=== PATIENT | female | born 1960 | race Caucasian/White ===

== ENCOUNTER → 2017-02-09 | Outpatient (CLI) | payer OTHER | LOC: FIMAGING 13:39 | PROVIDERS: ATTEND Family Medicine | DX: M54.32 Sciatica, left side (principal) ==

== ENCOUNTER → 2017-02-13 | Outpatient (CLI) | payer OTHER | LOC: FIMAGING 13:42 | PROVIDERS: ATTEND Orthopaedic Surgery Orthopaedic Surgery of the Spine | DX: M53.3 Sacrococcygeal disorders, not elsewhere classified (principal); M51.36 Other intervertebral disc degeneration, lumbar region; Z98.1 Arthrodesis status; K51.519 Left sided colitis with unspecified complications ==

== ENCOUNTER → 2017-02-22 | Outpatient (CLI) | payer OTHER | LOC: FIMAGING 14:07 | PROVIDERS: ATTEND Family Medicine | DX: Z12.31 Encounter for screening mammogram for malignant neoplasm of breast (principal); Z80.3 Family history of malignant neoplasm of breast | CPT/HCPCS: G0202 ==

== ENCOUNTER 2017-06-29 06:01 | Day surgery (SDC) | payer OTHER ==
[2017-06-29] MEDS ORDERED: LIDOCAINE 1% 2 ML INJ ID PRN (06:18)
[2017-06-29] MEDS ORDERED: LR 1,000 ML IV ONE (06:18)
[2017-06-29 06:48] VITALS: PULSE 92
[2017-06-29] MEDS ORDERED: PROPOFOL 200 MG/20 ML VIAL ONE ×2 (06:50→07:37)
[2017-06-29] MEDS ORDERED: fentaNYL 100 MCG/2 ML INJ ONE ×2 (06:50→07:37)
[2017-06-29] MEDS ORDERED: LIDOCAINE 2% 5 ML SDV ONE (06:50)
[2017-06-29] MEDS ORDERED: ONDANSETRON 4 MG/2 ML VIAL ONE (06:52)
[2017-06-29] MEDS ORDERED: MIDAZOLAM 2 MG/2 ML VIAL ONE (06:53)
[2017-06-29] MEDS ORDERED: DEXAMETHASONE 4 MG/ML VIAL ONE (06:53)
[2017-06-29] MEDS ORDERED: BUPIVACAINE 0.5% 30 ML SDV ONE (06:59)
[2017-06-29] MEDS: BUPIVACAINE 0.5% 30 ML SDV ONE ×2 (07:00→09:17)
--- NOTE | 2017-06-29 07:08 | PDANEPAE ---
ANE History of Present Illness left big toe fusion ANE Past Medical History - Cardiovascular History Hx Hypertension: Yes Hx Arrhythmias: No Hx Chest Pain: No Hx Coronary Artery / Peripheral Vascular Disease: No Hx CHF / Valvular Disease: No Hx Palpitations: No Cardiovascular History Comment: pcp monitors bp meds - Pulmonary History Hx COPD: No Hx Asthma/Reactive Airway Disease: No Hx Recent Upper Respiratory Infection: No Hx Oxygen in Use at Home: No Hx Sleep Apnea: No Sleep Apnea Screening Result - Last Documented: Negative - Neurologic History Hx Cerebrovascular Accident: No Hx Seizures: No Hx Dementia: No Neurologic History Comment: hx of back surgeries x3 - Endocrine History Hx Diabetes: Yes Obesity: no Endocrine History Comment: borderline dm. hypothyrodism - Renal History Hx Renal Disorders: No - Liver History Hx Hepatic Disorders: No - Neurological & Psychiatric Hx Hx Neurological and Psychiatric Disorders: Yes Neurological / Psychiatric History Comment: severe anxiety and depression - Cancer History Hx Cancer: No - Congenital Disorder History Hx Congenital Disorders: No - GI History GERD: no Hx Gastrointestinal Disorders: No Gastrointestinal History Comment: constipation with iron - Other Health History Other Health History: anemia - Chronic Pain History Chronic Pain: Yes (back and foot) - Surgical History Prior Surgeries: back surgery x3 with VBK [id number]. spinal injection wednesday with Dr. Padilla. breast augmentation x5. foot surgery x1. knee surgery (scopes) x2 with Anna ANE Review of Systems Review of systems is: negative Review of Systems: - Exercise capacity METS (RN): 4 METS ANE Patient History - Allergies Allergies/Adverse Reactions: No Known Allergies Allergy (Verified 06/28/17 15:48) - Home Medications Home medications: home medication list seen and reviewed Home Medications: Amlodipine Besylate/Benazepril [Amlodipine-Benazepril 5-10 mg] 06/13/12 [Last Taken Unknown] Bupropion HCl [Wellbutrin XL 300mg] 06/13/12 [Last Taken 06/29/17] DULoxetine [Cymbalta 60 MG (RX)] 06/13/12 [Last Taken 06/29/17] Diazepam [Valium 10 MG (RX)] 06/13/12 [Last Taken 06/29/17] Levothyroxine [Synthroid 25 mcg (RX)] 06/13/12 [Last Taken 06/29/17] Zolpidem Tartrate [Ambien 10 mg] 06/13/12 [Last Taken 06/28/17] IRON 06/28/17 [Last Taken 06/26/17] Metformin HCl 06/28/17 [Last Taken 06/28/17] Pravastatin Sodium 06/28/17 [Last Taken 06/29/17] - NPO status NPO Since - Liquids (Date): 06/28/17 NPO Since - Liquids (Time): 23:45 NPO Since - Solids (Date): 06/28/17 NPO Since - Solids (Time): 21:00 - Anes Hx Anes Hx: no prior problems - Smoking Hx Smoking Status: Never smoked - Family Anes Hx Family Hx Anesthesia Complications: none ANE Labs/Vital Signs - Labs Result Diagrams: 06/29/17 06:30 - Vital Signs Blood Pressure: 149/98 Heart Rate: 92 Respiratory Rate: 14 O2 Sat (%): 97 Height: 163.83 cm Weight: 58.967 kg ANE Physical Exam - Airway Neck exam: FROM Mallampati Score: Class 1 Mouth exam: normal dental/mouth exam - Pulmonary Pulmonary: no respiratory distress - Cardiovascular Cardiovascular: regular rate and rhythym - ASA Status ASA Status: III ANE Anesthesia Plan Anesthesia Plan: GA w LMA Regional Anesthesia: single shot NB, popliteal SNB
[2017-06-29 07:17] LABS: ANION GAP 16 mEq/L (8-16); CARBON DIOXIDE 23 mEq/l (22-31); CHLORIDE 94 mEq/L (97-110); CREATININE 0.5 mg/dL (0.6-1.0); GLOMERULAR FILTRATION RATE > 60; GLUCOSE 97 mg/dL (70-100); POTASSIUM 4.7 mEq/L (3.5-5.2); SODIUM 133 mEq/L (134-144)
[2017-06-29] MEDS ORDERED: ceFAZolin 2 GM/SWFI 2 GM/20 ML SYR IVP ONE (07:18)
--- NOTE | 2017-06-29 07:19 | PDHPUP ---
History & Physical Update H&P update statement: This history and physical update is based on an assessment of the patient which was completed after admission or registration (within 24 hours), but prior to the surgery/procedure.
[2017-06-29] MEDS ORDERED: ceFAZolin 1 GM VIAL ONE ×2 (07:51)
[2017-06-29] MEDS ORDERED: OXYCODONE/APAP 5/325 TAB PO PRN (08:37)
[2017-06-29] MEDS ORDERED: PROMETHAZINE HCL 25 MG/ML INJ IVP PRN (08:37)
[2017-06-29] MEDS ORDERED: fentaNYL 100 MCG/2 ML INJ IVP PRN (08:37)
[2017-06-29] MEDS ORDERED: HYDROmorphONE/DILAUDID 1 MG/ML INJ IVP PRN (08:37)
[2017-06-29] MEDS ORDERED: ACETAMINOPHEN 500 MG TAB PO PRN (08:37)
[2017-06-29] MEDS ORDERED: LR 500 ML IV PRN (08:37)
[2017-06-29] MEDS ORDERED: HYDROCODONE/APAP 5/325 TAB PO PRN (08:37)
[2017-06-29] MEDS ORDERED: ALBUTEROL 3 ML DEYVIAL IH PRN (08:37)
[2017-06-29] MEDS ORDERED: NALOXONE HCL 0.4 MG/ML INJ IVP PRN (08:37)
[2017-06-29] MEDS ORDERED: ONDANSETRON 4 MG/2 ML VIAL IVP PRN (08:37)
--- NOTE | 2017-06-29 09:14 | POSTOPPROG ---
Post Op Note Date of Operation: 06/29/17 Surgeon: Leandro Dodd Senior [facility] Physics Technician: Lavell Anesthesia: GET(General Endotracheal) Pre-op Diagnosis: L 1st mtp djd Post-op Diagnosis: same Indication: above Procedure: L 1st mtp fusion Findings: djd Inf/Abcess present in the surg proc area at time of surgery?: No EBL: Minimal
--- NOTE | 2017-06-29 09:25 | POSTANESTH ---
Post Anesthetic Evaluation Cardiovascular Status: Normal, Stable Respiratory Status: Requires Airway Assist Level of Consciousness/Mental Status: Can Participate in Eval Pain Control: Adequate, Prn Tx Ordered Nausea/Vomiting Control: Adequate, Prn Tx Ordered Complications Possibly Related to Anesthesia: None Noted
[2017-06-29 10:06] VITALS: RESP 20
[2017-06-29 11:25] VITALS: BP 124/85; O2SAT 95
[2017-06-29 11:26] VITALS: TEMP 97.9
--- NOTE | 2017-06-29 17:47 | GOP ---
[f rep st] OPERATIVE REPORT DATE OF OPERATION: 06/29/2017 SURGEON: Leandro Dodd MD ENGINEERING SPECIALIST: Lopez Monte SA PREOPERATIVE DIAGNOSIS: Left 1st metatarsophalangeal degenerative joint disease. POSTOPERATIVE DIAGNOSIS: Left 1st metatarsophalangeal degenerative joint disease. PROCEDURE PERFORMED: Left 1st metatarsophalangeal fusion. FINDINGS: SPECIMENS: None. ESTIMATED BLOOD LOSS: 5 mL. INDICATIONS: This is a 56-year-old female with end-stage 1st MTP DJD. I previously performed a chei lectomy on her. She failed this and went on to progress with further arthritis and pain. She was ab le to get off narcotic pain medicine preoperatively. I elected to proceed with surgery with her. We discussed risks of continued pain, the need to discontinue narcotics after the initial postoperative period, nerve injury, wound complications, malposition, malunion, nonunion, need for hardware remova l, and she elected to proceed. Informed consent and all questions answered. She was marked preopera tively. DESCRIPTION OF PROCEDURE: She was taken to the operative suite, sterilely prepped and draped in the usual fashion. Time-out was performed verifying site, side, location, and there was agreement with t he team. Tourniquet was inflated. I used old incisions to extend this to protect the EHL. I then r emoved some redundant scar tissue below this and opened the capsule. The joint was extremely arthrit ic. I debrided this with a rongeur and debrided scar tissue around the joint. I removed the medial bony prominence of which she was concerned and completely exposed the joint. I used the cup and cone reamers on the metatarsal and phalanx to prepare the joint and then drilled holes in this. I then p ositioned the toe and placed a guide pin across this and checked this fluoroscopically and checked cl inically with a flat plate. I felt this to be in good alignment. I drilled, placed headless liza alan screws to even compression, maintaining alignment. I placed the Arthrex 1st MTP plate over this . I filled the distal screws in the proximal compression screw and then additional proximal locking screws obtaining a solid construct. She had no motion of the 1st MTP joint clinically and radiograph ically position of fusion looked good. There was good compression. I thoroughly irrigated this and removed the medial and lateral bony prominences, closed with 0 Vicryl, 2-0 Vicryl, 3-0 Quill, and Trent mabond. She was taken to PACU in stable condition in a soft dressing. COMPLICATIONS: None. DRAINS: None. CONDITION: Stable. IMPLANTS: Arthrex headless compression 1st MTP plate and screws. /[id number]/MODL
== END 2017-06-29 11:28 | disposition home or self-care (01) ==
LOC: FSGY 06:01
PROVIDERS: ATTEND Orthopaedic Surgery
PROC: 0SGN04Z Fusion of Left Metatarsal-Phalangeal Joint with Internal Fixation Device, Open Approach (ICD-10-PCS; principal; 2017-06-29 07:15)
DX: M20.22 Hallux rigidus, left foot (principal); M79.672 Pain in left foot; I10 Essential (primary) hypertension; E03.9 Hypothyroidism, unspecified; F32.9 Major depressive disorder, single episode, unspecified; F41.9 Anxiety disorder, unspecified
CPT/HCPCS: C1713; J0690; J1100; J2250; J2405; J2704; J3010

== ENCOUNTER 2017-10-20 09:15 | Observation (INO) | payer OTHER ==
--- NOTE | 2017-10-08 09:06 | GHP ---
[f rep st] PREOP HISTORY AND PHYSICAL DATE OF SURGERY: She will be an a.m. admission for surgery on October 20, 2017. PROBLEM: Right knee advanced lateral compartment degenerative arthritis. HISTORY OF PRESENT ILLNESS: The patient is a 57-year-old woman admitted for a right total knee arthroplasty. She has a several year history of progressive pain and swelling in her right knee. She has tried viscosupplementation injections and cortisone injections without benefit. On December 04, 2016, I performed arthroscopic surgery on her knee. She had a significant lateral compartment degenerative arthritis with areas of exposed subchondral bone. She did not improve with the arthroscopic surgery. She is now having severe pain. Her activities are limited. Her quality of life has diminished. She has failed nonsurgical treatment, and she will undergo a right total knee arthroplasty. PAST MEDICAL HISTORY: She has chronic low back pain. She has had 2 recent back injections by Dr. Ning Padilla. She is taking tramadol 100 mg per day. No history of heart disease or stents, DVT, hepatitis, or sleep apnea. MEDICATIONS: Currently amlodipine/benazepril daily, bupropion extended release daily. ALLERGIES: Drug allergies: None. Metal allergy: None. Latex allergy: None. SOCIAL HISTORY: The patient is single. She does not smoke cigarettes or drink alcohol. She is currently not working. Her daughter lives with her, and her daughter is going to help her during the recovery phase. FAMILY HISTORY: Positive for cancer and heart disease. PHYSICAL EXAMINATION: GENERAL: She is a healthy-appearing woman. Height 5 feet 4 inches. Weight 135 pounds. BMI 23.2. EYES: Conjunctivae and sclerae are clear. Pupils are round and reactive. MOUTH: Good oral hygiene. No loose teeth. CHEST: Clear. HEART: Regular rhythm. No murmurs. EXTREMITIES : Pertinent findings limited to her right knee. She has a moderately large effusion. She has increased valgus alignment. Full extension and 120 degrees of flexion. She has mild pseudolaxity of her lateral collateral ligament. Her films show lateral compartment degenerative arthritis with slightly increased valgus alignment. IMPRESSION ON ADMISSION: 1. Right knee advanced lateral compartment degenerative arthritis. 2. Status post L5-S1 spine fusion. 3. Treatment for depression. 4. Chronic pain syndrome. 5. Status post left great toe metatarsophalangeal joint arthrodesis. PLAN: She will undergo a right total knee arthroplasty. The surgery has been described to her, including the risks, complications, expectations, and recovery time. I anticipate a difficult recovery because of her low pain threshold, and her previous history of chronic pain and narcotic use. I have stressed the importance of postoperative physical therapy. She understands that approximately 15% of people do not get a good result with a total knee replacement. All her questions have been answered, and she consents to surgery. /[id number]/MODL MTDD
[2017-11-02] MEDS ORDERED: ROPIVACAINE 0.2% 80 MG, EPINEPHrine 0.2 MG, KETOROLAC TROMETHAMINE 30 MG in SYRINGE 0 ML IU ONE (12:39)
[2017-11-03] MEDS ORDERED: NS IV ONE (06:00)
[2017-11-03] MEDS ORDERED: TRANEXAMIC ACID IV ONE (06:00)
[2017-11-03] MEDS ORDERED: BUPI/epINEPH/KETOROLAC IU ONE (06:00)
[2017-11-03] MEDS ORDERED: POVIDONE-IODINE 20 ML in SODIUM CL IRRIG SOLUTION 500 ML IRR ONE (06:00)
[2017-11-10] MEDS ORDERED: DEXAMETHASONE 4 MG/ML VIAL IVP ONE (09:42)
[2017-11-10] MEDS ORDERED: ACETAMINOPHEN 325 MG TAB PO ONE (09:42)
[2017-11-10] MEDS ORDERED: ONDANSETRON 4 MG/2 ML VIAL IVP ONE (09:42)
[2017-11-10] MEDS ORDERED: FAMOTIDINE 20 MG TAB PO ONE (09:42)
[2017-11-10] MEDS ORDERED: GABAPENTIN 300 MG CAP PO ONE (09:42)
[2017-11-10] MEDS ORDERED: ceFAZolin 2 GM/SWFI 2 GM/20 ML SYR IVP ONE (09:42)
[2017-11-10] MEDS ORDERED: MIDAZOLAM 2 MG/2 ML VIAL IVP ONE ×2 (09:55→12:28)
--- NOTE | 2017-11-10 09:55 | PDANEPAE ---
ANE Past Medical History - Cardiovascular History Hx Hypertension: Yes Hx Arrhythmias: No Hx Chest Pain: No Hx Coronary Artery / Peripheral Vascular Disease: No Hx CHF / Valvular Disease: No Hx Palpitations: No Cardiovascular History Comment: pcp monitors bp meds - Pulmonary History Hx COPD: No Hx Asthma/Reactive Airway Disease: No Hx Recent Upper Respiratory Infection: No Hx Oxygen in Use at Home: No Hx Sleep Apnea: No Sleep Apnea Screening Result - Last Documented: Negative - Neurologic History Hx Cerebrovascular Accident: No Hx Seizures: No Hx Dementia: No Neurologic History Comment: hx of back surgeries x3 -low back pain - Endocrine History Hx Diabetes: Yes Hypothyroid: Yes Hyperthyroid: No Obesity: no Endocrine History Comment: borderline dm -on Metformin. hypothyrodism - Renal History Hx Renal Disorders: No - Liver History Hx Hepatic Disorders: No - Neurological & Psychiatric Hx Hx Neurological and Psychiatric Disorders: Yes Neurological / Psychiatric History Comment: severe anxiety and depression - Cancer History Hx Cancer: No - Congenital Disorder History Hx Congenital Disorders: No - GI History GERD: no Hx Gastrointestinal Disorders: No Gastrointestinal History Comment: constipation with iron - Other Health History Other Health History: LOW SODIUM LEVELS BEING MONITORED BY PCP RECENTLY DECREASED DOSAGE OF CYMBALTA. OSTEOARTHRITIS. anemia - Chronic Pain History Chronic Pain: Yes (back/R knee) - Surgical History Prior Surgeries: L great toe sx -. back surgery x3 with VBK [id number]. NADIRA 06/27. breast augmentation x5. foot surgery x1. ANTONINO KNEE SCOPES. C section ANE Review of Systems Review of Systems: - Exercise capacity METS (RN): 4 METS ANE Patient History - Allergies Allergies/Adverse Reactions: No Known Allergies Allergy (Verified 10/05/17 17:08) - Home Medications Home Medications: Herbals/Supplements -Info Only 1 ea PO DAILY #0 06/28/17 [Last Taken 06/26/17] Pravastatin Sodium 20 mg PO DAILY #0 06/28/17 [Last Taken 11/08/17] metFORMIN SR [Glucophage XR 500 mg (*)] 1,000 mg PO BID #0 06/28/17 [Last Taken 11/08/17] Bupropion HCl [Wellbutrin Xl] 300 mg PO DAILY 10/04/17 [Last Taken 11/10/17 06: 45] DULoxetine [Cymbalta 30 MG (*)] 60 mg PO DAILY 10/04/17 [Last Taken 11/10/17 06: 45] Diazepam [Valium 10 MG (*)] 10 mg PO BID 10/04/17 [Last Taken 11/08/17] Levothyroxine [Synthroid 25 mcg (*)] 25 mcg PO DAILY06 10/04/17 [Last Taken 08/29 06:45] Valacyclovir HCl [Valtrex] 1,000 mg PO DAILY 10/04/17 [Last Taken 11/08/17] ZOLPIDEM TARTRATE [Ambien CR 12.5 mg] 12.5 mg PO HS 10/04/17 [Last Taken 22:00] amLODIPine BESYLATE/BENAZEPRIL [Lotrel 5/20 mg Cap (*)] 1 each PO DAILY [Last Taken 11/10/17 06:45] - NPO status NPO Since - Liquids (Date): 11/10/17 NPO Since - Liquids (Time): 05:30 NPO Since - Solids (Date): 11/09/17 NPO Since - Solids (Time): 22:00 - Anes Hx Anes Hx: no prior problems - Smoking Hx Smoking Status: Never smoked - Family Anes Hx Family Anes Hx: neg - N/A Family Hx Anesthesia Complications: none ANE Labs/Vital Signs - Vital Signs Blood Pressure: 133/89 Heart Rate: 83 Respiratory Rate: 20 O2 Sat (%): 97 Height: 163.83 cm Weight: 63.503 kg ANE Physical Exam - Airway Neck exam: FROM Mallampati Score: Class 2 Mouth exam: normal dental/mouth exam - Pulmonary Pulmonary: no respiratory distress, no rales or rhonchi, clear to auscultation - Cardiovascular Cardiovascular: regular rate and rhythym, no murmur, rub, or gallop - ASA Status ASA Status: II ANE Anesthesia Plan Anesthesia Plan: MAC, spinal Regional Anesthesia: continuous NB, adductor canal FNB Total IV Anesthesia: No
[2017-11-10] MEDS ORDERED: fentaNYL 100 MCG/2 ML INJ ONE (10:06)
[2017-11-10] MEDS ORDERED: PROPOFOL/EMULSION 500 MG/50 ML BOTTLE IV ONE ×2 (10:07→11:16)
[2017-11-10] MEDS ORDERED: MIDAZOLAM 2 MG/2 ML VIAL ONE (10:10)
[2017-11-10] MEDS ORDERED: TRANEXAMIC ACID 3,000 MG in NS (SYRINGE) 50 ML IRR ONE (11:00)
[2017-11-10] MEDS ORDERED: ONDANSETRON 4 MG/2 ML VIAL IVP PRN ×2 (11:01→12:12)
[2017-11-10] MEDS ORDERED: NALOXONE HCL 0.4 MG/ML INJ IVP PRN (11:01)
[2017-11-10] MEDS ORDERED: ACETAMINOPHEN 500 MG TAB PO PRN (11:01)
[2017-11-10] MEDS ORDERED: LR 500 ML IV PRN (11:01)
[2017-11-10] MEDS ORDERED: PHENYLEPHRINE HCL 100 MCG/ML SYR IVP PRN (11:01)
[2017-11-10] MEDS ORDERED: epHEDrine SULFATE 10 MG/ML SYR IVP PRN (11:01)
[2017-11-10] MEDS ORDERED: PROMETHAZINE HCL 25 MG/ML INJ IVP PRN ×2 (11:01→12:12)
[2017-11-10] MEDS ORDERED: oxyCODONE IR 5 MG TAB PO PRN (11:01)
[2017-11-10] MEDS ORDERED: HYDROCODONE/APAP 5/325 TAB PO PRN (11:01)
--- NOTE | 2017-11-10 11:46 | POSTOPPROG ---
Post Op Note Date of Operation: 11/10/17 Surgeon: Pradeep Castillo Wafer Batter Mixer: April Anesthesiologist: Dr. Mariusz Enrique Anesthesia: IV Sedation, Spinal Post-op Diagnosis: Right knee degenerative arthritis Procedure: Right total knee arthroplasty Inf/Abcess present in the surg proc area at time of surgery?: No EBL: 50-100 (Adductor canal block in PACU)
[2017-11-10] MEDS ORDERED: traMADol 50 MG TAB PO PRN (12:12)
[2017-11-10] MEDS ORDERED: ONDANSETRON DISINTEGRATING 4 MG TAB PO PRN (12:12)
[2017-11-10] MEDS ORDERED: BISACODYL 10 MG SUPP PR PRN (12:12)
[2017-11-10] MEDS ORDERED: POLYETHYLENE GLYCOL 3350 17 GM PKT PO PRN (12:12)
[2017-11-10] MEDS ORDERED: MAGNESIUM HYDROXIDE 30 ML UDCUP PO PRN (12:12)
[2017-11-10] MEDS ORDERED: NS 500 ML IV PRN (12:12)
[2017-11-10] MEDS ORDERED: LACTULOSE 20 GM/30 ML UDCUP PO PRN (12:12)
[2017-11-10] MEDS ORDERED: DIPHENOXYLATE/ATROPINE LOMOTIL 1 TAB PO PRN (12:12)
[2017-11-10] MEDS ORDERED: diphenhydrAMINE 25 MG CAP PO PRN (12:12)
[2017-11-10] MEDS ORDERED: PROMETHAZINE HCL 25 MG SUPPR PR PRN (12:12)
[2017-11-10] MEDS ORDERED: CYCLOBENZAPRINE 10 MG TAB PO PRN (12:12)
--- NOTE | 2017-11-10 12:26 | GOP ---
[f rep st] OPERATIVE REPORT DATE OF OPERATION: 11/10/2017 SURGEON: Pradeep Castillo MD PST MANAGER: Fernando Mathias, MOLDER FEEDER, and Demian Jones, PAC. ANESTHESIA: A combination of Marcaine spinal, IV sedation, and adductor canal block. ANESTHESIOLOGIST: Topher Enrique DO. PREOPERATIVE DIAGNOSIS: Right knee degenerative arthritis, primarily involving the lateral compartme nt. POSTOPERATIVE DIAGNOSIS: Right knee degenerative arthritis, primarily involving the lateral compartm ent. PROCEDURE PERFORMED: Right total knee arthroplasty, cemented, Saldana and Nephew Journey II, posterior stabilized. FINDINGS: DESCRIPTION OF PROCEDURE: The patient was given 2 g of IV Ancef preoperatively within 60 minutes of surgery. She also received 1000 mg of preoperative IV tranexamic acid. She was placed on the operat ing room table and given spinal anesthesia with Marcaine by Dr. Enrique. She was then placed sup ine and given IV sedation. A Corey catheter was not used. She wore a NED stocking and SCD on the no noperative leg. Her right lower extremity was prepped with ChloraPrep from the upper thigh tournique t to the tips of the toes. It was draped free using sterile sheets, stockinette, and Ioban plastic a dhesive drape. The lower leg was wrapped with compressive Coban. The leg was exsanguinated with kira vation and a 6-inch compressive wrap, and the pneumatic tourniquet was inflated to 250 mmHg. The World Health Organization time-out was performed to verify the correct patient identity and the c orrect surgical side and site. The [place] time-out was also performed. The DeMayo leg holding device was sterilely attached to the operating room table and used throughout the procedure to help position the knee. A straight midline incision was made centered on the patell a. Subcutaneous tissues were sharply divided, and hemostasis was obtained using electrocautery. A m edial subcutaneous flap was developed, and the capsule and synovium were opened in medial parapatella r fashion. Extensive degenerative changes were present in the patellofemoral joint and in the latera l compartment. The medial capsule and periosteum were lightly elevated off the rim of the medial tib ial plateau. I was careful not to over release her medial collateral ligament. Her patella was prepared first. The original thickness of the patella was measured. Peripheral oste ophytes removed. I cut a flat surface on the back of the patella. She was sized for a 32 mm round r esurfacing component. I removed enough bone from the patella such that the remaining bone plus the t hickness of the patellar component recreated the original thickness of the patella. The composite th ickness was 22 mm. The intramedullary alignment guide system was used to set up the distal femoral cut. The distal femu r was cut in 6 degrees of valgus. She did not have a preoperative flexion contracture. I did not ma ke a +2 mm cut on the distal femur. The sizing jig was used to determine proper femoral sizing. I s hifted the jig anteriorly 2 mm in order to accommodate a size 3 without notching the anterior cortex. The 5-in-1 cutting block was applied, and the anterior and posterior condylar cuts and chamfer cuts were made. The final jig was used to remove the central portion of the distal femur to accommodate the posterior stabilized femoral component. I was careful to determine proper rotation by referencin g off Whitesides line and other bony landmarks. Each cut was checked for accuracy before and after i t was made. Her femur was sized for a size 3 posterior stabilized component. Next, the tibia was prepared. The proximal tibial cut was made using the extramedullary alignment gu jared system. The cut was made in a few degrees of posterior slope. I was careful to achieve proper v arus/valgus alignment and proper rotation. The posterior compartment was cleared of meniscal remnant s. Osteophytes were removed from the back of her femoral condyles. I checked the flexion/extension gaps, and they were equal, balanced, and rectangular. Her tibia was sized for a size 2 component. W ith the trial components in place, I selected a 10 mm polyethylene posterior stabilized tibial insert . The knee came to full extension and flexed to 120 degrees. There was no overstuffing in flexion. The collateral ligaments were stable and balanced in 90 degrees of flexion and full extension. The trial patellar button was applied, and patellar tracking was checked. Tracking was excellent without any digital pressure. 40 mL of the joint anesthetic cocktail was injected into the posterior capsule, the quadriceps muscle and tendon areas, and the subcutaneous tissues along the skin edges. Surfaces were prepared for cementing. They were carefully cleaned with the pulsating lavage irrigati on and thoroughly dried. The CarboJet device was used to blow dry the cancellous surfaces. A double batch of high viscosity methylmethacrylate cement with 2 g of powdered vancomycin added was mixed. While it was still in a doughy state, all 3 components were cemented in place. Excess cement was rem don before it hardened. The 10 mm trial tibial insert was re-tried and was the proper thickness. The actual component was in serted and locked into place. The knee was thoroughly irrigated 1 final time with a dilute Betadine solution. The tourniquet was deflated. Total tourniquet time was 49 minutes. I then applied 50 cc of saline w ith 3 g of tranexamic acid into the knee joint. It was left in the knee joint for 2 or 3 minutes. O ne final irrigation with dilute Betadine solution was performed. The vastus medialis portion of the extensor mechanism was repaired with several interrupted figure-of -eight #2 FiberWire sutures. The capsule and synovium were closed first with multiple interrupted fi [id number] PDS sutures, followed by a running barbed Ethicon Stratafix PDO suture. Subcutaneous tissues were closed with a running 0 barbed Ethicon Stratafix Monoderm suture. The skin was closed with a running 3-0 barbed Ethicon Stratafix Monoderm subcuticular suture. The skin was sealed with h anupama-inch Steri-Strips. The wound was covered with a large Mepilex waterproof dressing. A long-leg T ED stocking and SCD were applied, followed by the cooling device. She wore a stocking and SCD on the opposite leg during the procedure. The Mediplex sacral dressing was applied. I used a size 3 cemented Saldana and Nephew Oxinium posterior stabilized femoral component, size 2 ceme nted tibial base plate, 10 mm posterior stabilized tibial insert, and a 32 mm cemented round all-poly ethylene resurfacing patellar component. The estimated blood loss following deflation of the tourniquet was about 100 mL. The sponge and needle counts were correct on 2 occasions. She was awakened from anesthesia, transferred to her [facility], and taken to PACU in satisfacto ry condition. There were no recognized intraoperative complications. In the PACU, for additional po stoperative pain control, Dr. Enrique performed an adductor canal block with an indwelling cathet er. Fernando Mtahias and Kalin Jones acted as surgical assistants. Their assistance was a medical necess ity for safe completion of the procedure. /[id number]/MODL
--- NOTE | 2017-11-10 12:29 | POSTANESTH ---
Post Anesthetic Evaluation Cardiovascular Status: Normal, Stable Respiratory Status: Normal, Stable Level of Consciousness/Mental Status: Can Participate in Eval Pain Control: Adequate, Prn Tx Ordered Nausea/Vomiting Control: Adequate, Prn Tx Ordered Complications Possibly Related to Anesthesia: None Noted
[2017-11-10] MEDS ORDERED: LR 1,000 ML IV SCH (12:30)
[2017-11-10] MEDS ORDERED: ceFAZolin 2 GM/DEXTROSE 100 ML IV SCH (14:00)
[2017-11-10] MEDS ORDERED: DIAZEPAM 10 MG TAB PO ONE (16:45)
[2017-11-10] MEDS ORDERED: DIAZEPAM 5 MG TAB PO ONE (16:45)
[2017-11-10] MEDS: oxyCODONE IR 5 MG TAB PO PRN ×3 (17:30→22:26)
[2017-11-10] MEDS: ACETAMINOPHEN 325 MG TAB PO SCH ×2 (17:30→23:45)
[2017-11-10] MEDS: KETOROLAC 15 MG/1 ML SDV IVP SCH ×2 (17:51→23:45)
[2017-11-10] MEDS: metFORMIN SR 500 MG TAB PO SCH (20:48)
[2017-11-10] MEDS: ZOLPIDEM TARTRATE 5 MG TAB PO PRN ×2 (20:48→22:36)
[2017-11-10] MEDS: DIAZEPAM 5 MG TAB PO SCH (20:48)
[2017-11-10] MEDS: FAMOTIDINE 20 MG TAB PO SCH (20:49)
[2017-11-10] MEDS: SENNOSIDES/DOCUSATE SODIUM TAB PO SCH (20:49)
[2017-11-10] MEDS ORDERED: ceFAZolin 2 GM/SWFI 2 GM/20 ML SYR IVP SCH (21:00)
[2017-11-10] MEDS: ASPIRIN 325 MG TAB PO SCH (21:41)
[2017-11-11] MEDS: oxyCODONE IR 5 MG TAB PO PRN ×3 (02:10→12:00)
[2017-11-11] MEDS ORDERED: LEVOTHYROXINE 25 MCG TAB PO SCH (06:00)
[2017-11-11] MEDS: KETOROLAC 15 MG/1 ML SDV IVP SCH (06:28)
[2017-11-11] MEDS: ACETAMINOPHEN 325 MG TAB PO SCH (06:28)
--- NOTE | 2017-11-11 07:39 | SOAPPROG ---
SOAP Progress Note Assessment/Plan: Assessment: Awake and alert. Moderate pain. She required a Corey catheterization yesterday, but is voiding spontaneously now. She has been walking to the bathroom. Postop H&H is good. Postop films look excellent. Her dressing is dry. Moderate swelling. Plan: Continue physical therapy today. Standing leg alignment film today. Discharged later today. 11/11/17 07:38 Objective: Vital Signs Temp Pulse Resp BP Pulse Ox 36.6 C 80 16 134/76 H 94 11/11/17 04:00 11/11/17 04:00 11/11/17 04:00 11/11/17 04:00 11/11/17 04:00 Laboratory Results 11/11/17 04:22 11/10/17 11/11/17 11/12/17 05:59 05:59 05:59 Intake Total 2750 Output Total 3450 Balance -700 ICD10 Worksheet Patient Problems: Problems Problem Status Onset Osteoarthritis of right knee Acute
--- NOTE | 2017-11-11 07:41 | PDIAF ---
- Diagnosis Diagnosis: right knee OA Code Status: Full Code - Medication Management Discharge Medications: Medications to Continue on Transfer Herbals/Supplements -Info Only 1 ea PO DAILY #0 06/28/17 [Last Taken 06/26/17] Pravastatin Sodium 20 mg PO DAILY #0 06/28/17 [Last Taken 11/08/17] metFORMIN SR [Glucophage XR 500 mg (*)] 1,000 mg PO BID #0 06/28/17 [Last Taken 11/08/17] Bupropion HCl [Wellbutrin Xl] 300 mg PO DAILY 10/04/17 [Last Taken 11/10/17 06: 45] DULoxetine [Cymbalta 30 MG (*)] 60 mg PO DAILY 10/04/17 [Last Taken 11/10/17 06: 45] Diazepam [Valium 10 MG (*)] 10 mg PO BID 10/04/17 [Last Taken 11/08/17] Levothyroxine [Synthroid 25 mcg (*)] 25 mcg PO DAILY06 10/04/17 [Last Taken 08/29 06:45] Valacyclovir HCl [Valtrex] 1,000 mg PO DAILY 10/04/17 [Last Taken 11/08/17] ZOLPIDEM TARTRATE [Ambien CR 12.5 mg] 12.5 mg PO HS 10/04/17 [Last Taken 22:00] amLODIPine BESYLATE/BENAZEPRIL [Lotrel 5/20 mg Cap (*)] 1 each PO DAILY [Last Taken 11/10/17 06:45] Acetaminophen [Tylenol 325mg (*)] 650 mg PO Q6HRS tab 11/11/17 [Last Taken Unknown] Aspirin [Aspirin 325 mg (*)] 325 mg PO DAILY tab 11/11/17 [Last Taken Unknown] Ondansetron Odt [Zofran Odt 4 mg (*)] 4 mg PO Q4HRS PRN tab 11/11/17 [Last Taken Unknown] Sennosides/Docusate Sodium [Senokot-S] 1 - 2 tab PO BID tab 11/11/17 [Last Taken Unknown] celeCOXIB [Celebrex (*)] 200 mg PO DAILY cap 11/11/17 [Last Taken Unknown] oxyCODONE IR [Oxycodone Ir (*)] 5 - 10 mg PO Q3HRS PRN tab 11/11/17 [Last Taken Unknown] traMADol [Ultram 50 mg (*)] 50 mg PO Q6HRS PRN tab 11/11/17 [Last Taken Unknown ] Discharge Medications: Refer to the Discharge Home Medication list for PRN reason. PICC Care - Routine: N/A - Orders Services needed: Home Care, Physical Therapy Home Care Face to Face: I certify that this patient was under my care and that I had the required [id number] encounter meeting the encounter requirements on the discharge day. My findings support the fact that the patient is homebound as defined in Home Care Face to Face Continued: CMS Chapter 7 Medicare Benefits Manual 30.1.1 , The condition of the patient is such that there exists a normal inability to leave home and consequently, leaving home would require a considerable and taxing effort. Diet Recommendation: no restrictions on diet Diet Texture: Regular Texture Diet Corey: Not applicable Peter Stockings Discontinue Date: 1 week Wound Care Instructions: keep clean and dry. You may shower. Activity/Weight Bearing Restrictions: as tolerated. Equipment: Zero knee while in bed as tolerated. - Follow Up Care Current Providers and Referrals: DINAH STARR [Primary Care Provider] - Pradeep Castillo MD [Medical Doctor] - 11/15/17
--- NOTE | 2017-11-11 08:06 | GDS ---
[f rep st] DISCHARGE SUMMARY ADMISSION DIAGNOSIS: Right knee arthritis. DISCHARGE DIAGNOSIS: Right knee arthritis. OPERATION PERFORMED: 11/29/2017, right total knee arthroplasty. POSTOPERATIVE COMPLICATIONS: None. CONDITION ON DISCHARGE: Improved. DESCRIPTION OF HOSPITAL COURSE: The patient was admitted to the hospital on the morning of surgery. Under a combination of Marcaine spinal, IV sedation, and adductor canal block, she underwent a right total knee arthroplasty. Postoperatively, she required Corey catheterization 1 time, but was able t o void spontaneously after that. She was treated with multimodal DVT prophylaxis, including aspirin. On the first postoperative day, her hemoglobin and hematocrit were 10.9 and 31.8. She was seen by Physical Therapy and made decent progress with ambulation and knee range of motion. By the time of d ischarge, she was afebrile and was independent in walking with a walker. DISPOSITION: The patient is discharged to her home. She will have home physical therapy. Continue aspirin 325 mg p.o. daily for 21 days. Continue Celebrex 200 mg daily for 21 days. She has prescrip tions for tramadol and oxycodone for pain control. I will see her back in the office on 11/15/2017. If there are any problems, she is to call me at the office. /[id number]/MODL
[2017-11-11] MEDS: SENNOSIDES/DOCUSATE SODIUM TAB PO SCH (08:37)
[2017-11-11] MEDS: metFORMIN SR 500 MG TAB PO SCH (08:38)
[2017-11-11] MEDS: DIAZEPAM 5 MG TAB PO SCH (08:39)
[2017-11-11] MEDS: ASPIRIN 325 MG TAB PO SCH (08:40)
[2017-11-11] MEDS: FAMOTIDINE 20 MG TAB PO SCH (08:41)
[2017-11-11] MEDS ORDERED: AMLODIPINE BESYLATE 5/BENAZEPRIL 20MG 1 EACH CAP PO SCH (09:00)
[2017-11-11] MEDS ORDERED: PRAVASTATIN SODIUM 20 MG TAB PO SCH (09:00)
[2017-11-11] MEDS ORDERED: valACYclovir 500 MG TAB PO SCH (09:00)
[2017-11-11] MEDS ORDERED: DULoxetine 30 MG CAP PO SCH (09:00)
[2017-11-11] MEDS ORDERED: buPROPion XL 150 MG TAB PO SCH (09:00)
[2017-11-11 10:10] VITALS: BP 108/79
--- NOTE | 2017-11-11 10:30 | SOAPPROG ---
SOAP Progress Note Assessment/Plan: Assessment: POD #1 s/p TKA performed under SAB and IV sedation. An adductor canal block and catheter placement were performed in the PACU for extended POPC. Patient doing well. Plan: D/C to home today. Prior to d/c will rebolus adductor canal catheter and then withdraw. 11/11/17 10:26 Subjective: Pt. admits pain increasing since 0200. Tolerable and controllable. Denies N/ V, pruritus, urinary retention. Admits to mild back pain. Objective: Vital Signs Temp Pulse Resp BP Pulse Ox 36.6 C 87 18 108/79 92 11/11/17 04:00 11/11/17 10:09 11/11/17 10:09 11/11/17 10:09 11/11/17 10:09 Laboratory Results 11/11/17 04:22 11/10/17 11/11/17 11/12/17 05:59 05:59 05:59 Intake Total 2750 Output Total 3450 Balance -700 - Time Spent With Patient Time Spent With Patient: 15 minutes - Pending Discharge Pending Discharge Within 24 Hours: Yes Pending Discharge Date: 11/12/17 Pending Discharge Time: 11:00 Physical Exam - Physical Exam General Appearance: WD/WN, alert, no apparent distress Neuro/Psych: normal mood/affect, oriented x 3 ICD10 Worksheet Patient Problems: Problems Problem Status Onset Osteoarthritis of right knee Acute
--- NOTE | 2017-11-11 10:38 | ASMTCMCOM ---
CM Note CM Note Notes: Pt had total knee, PT rec [facility]. Pt chooses [facility] PT, orders sent in [employer]. Pt medically stable for d/c. Date Signed: 11/11/2017 10:37 AM Electronically Signed By:NATALI Blank
--- NOTE | 2017-11-11 14:31 | ASDISCHSUM ---
Discharge Information Plan Status:Home with Home Health Medically Cleared to Leave: Discharge Date:11/11/2017 12:34 PM CM D/C Disposition:Home Health Service ADT D/C Disposition:Home Health Service Projected Discharge Date:11/11/2017 11:00 AM Transportation at D/C: Discharge Delay Reason: Follow-Up Date:11/11/2017 11:00 AM Discharge Slot: Final Diagnosis: Placement Information Referral Type:*Home Health Care Services Referral ID:[id number] Provider Name:[facility] [place] Address 1:[address] [address] Address 2: City:[place] Selection Factors: State:[place] Patient Contact Information Contact Name:WILLIAM Relationship:Daughter Address: Work Phone: City:[place] Alternate Phone: [facility] Code:[place] Email: Financial Information Financial Class:HMO and PPO Plans Primary Plan Desc:H[employer] [employer] Primary Plan Number:[id number] Secondary Plan Desc: Secondary Plan Number: Assessment Information [facility] CM Progress Note CM Note CM Note Notes: Pt had total knee, PT rec [facility]. Pt chooses [facility], orders sent in [employer]. Pt medically stable for d/c. Date Signed: 11/11/2017 10:37 AM Electronically Signed By:NATALI Blank Intervention Information
== END 2017-11-11 12:34 | disposition home health service (06) ==
LOC: F3N 11-10 07:48
PROVIDERS: ADMIT Orthopaedic Surgery; ATTEND Orthopaedic Surgery
PROC: 0SRC0J9 Replacement of Right Knee Joint with Synthetic Substitute, Cemented, Open Approach (ICD-10-PCS; principal; 2017-11-10 09:30)
DX: M17.11 Unilateral primary osteoarthritis, right knee (principal); M54.5 Low back pain; E03.9 Hypothyroidism, unspecified; G89.4 Chronic pain syndrome; F32.9 Major depressive disorder, single episode, unspecified; Z98.1 Arthrodesis status
CPT/HCPCS: 27447; 73560; 77073; 97161; G0378; J0171; J1885; J2250; J2370; J2405; J2704; J3010

== ENCOUNTER 2017-11-27 08:03 | Emergency (ER) | payer OTHER ==
[2017-11-27] MEDS ORDERED: HYDROmorphONE/DILAUDID 2 MG/ML INJ IVP ONE (08:23)
--- NOTE | 2017-11-27 08:27 | EDPHY ---
H & P Stated Complaint: R knee pain/swelling at site knee replacemt 11/17 Time Seen by Provider: 11/27/17 08:20 HPI/ROS: CHIEF COMPLAINT: Right knee pain HISTORY OF PRESENT ILLNESS: The patient is a 57-year-old female who had her right knee replaced 10 days ago. She states that she ran out of her oxycodone 5 days ago has had continued pain since that time. She has been moving it less and states that it is now swelling more. She called Dr. Dodd who is on for Dr. Castillo and sent her in for ultrasound to rule out DVT. Patient is primarily concerned about pain control. No fever. No drainage. No erythema. REVIEW OF SYSTEMS: Constitutional: denies: chills, fever, recent illness, recent injury EENTM: denies: blurred vision, double vision, nose congestion Respiratory: denies: cough, shortness of breath Cardiac: denies: chest pain, irregular heart rate, lightheadedness, palpitations Gastrointestinal/Abdominal: denies: abdominal pain, diarrhea, nausea, vomiting, blood streaked stools Genitourinary: denies: dysuria, frequency, hematuria, pain Musculoskeletal: See HPI Skin: denies: lesions, rash, jaundice, bruising Neurological: denies: headache, numbness, paresthesia, tingling, dizziness, weakness Hematologic/Lymphatic: denies: blood clots, easy bleeding, easy bruising Immunologic/allergic: denies: HIV/AIDS, transplant EXAM: GENERAL: Well-appearing, well-nourished and in no acute distress. HEAD: Atraumatic, normocephalic. EYES: Pupils equal round and reactive to light, extraocular movements intact, sclera anicteric, conjunctiva are normal. ENT: TMs normal, nares patent, oropharynx clear without exudates. Moist mucous membranes. NECK: Normal range of motion, supple without lymphadenopathy or JVD. LUNGS: Breath sounds clear to auscultation bilaterally and equal. No wheezes rales or rhonchi. HEART: Regular rate and rhythm without murmurs, rubs or gallops. ABDOMEN: Soft, nontender, normoactive bowel sounds. No guarding, no rebound. No masses appreciated. BACK: No CVA tenderness, no spinal tenderness, step-offs or deformities EXTREMITIES: Right knee with moderate swelling, incision clean dry and intact. No warmth or erythema or drainage. Range of motion limited by pain. No swelling in calf or ankle. NEUROLOGICAL: Cranial nerves II through XII grossly intact. Normal speech, normal gait. 5/5 strength, normal movement in all extremities, normal sensation PSYCH: Normal mood, normal affect. SKIN: Warm, dry, normal turgor, no visible rashes or lesions. Source: Patient Exam Limitations: No limitations - Medical/Surgical History Hx Asthma: No Hx Chronic Respiratory Disease: No Hx Diabetes: No Hx Cardiac Disease: No Hx Renal Disease: No Hx Cirrhosis: No Hx Alcoholism: No Hx HIV/AIDS: No Hx Splenectomy or Spleen Trauma: No Other PMH: 3 prior back surgeries, HTN, anxiety, depression, hypothyroidism - Family History Significant Family History: No pertinent family hx - Social History Smoking Status: Never smoked Alcohol Use: None Constitutional: Initial Vital Signs Temperature (C) 36.4 C 11/27/17 08:04 Heart Rate 86 11/27/17 08:04 Respiratory Rate 18 11/27/17 08:04 Blood Pressure 146/76 H 11/27/17 08:04 O2 Sat (%) 97 11/27/17 08:04 O2 Delivery Mode Room Air Allergies/Adverse Reactions: No Known Allergies Allergy (Verified 10/05/17 17:08) Home Medications: Medication Instructions Recorded Herbals/Supplements -Info Only 1 ea PO DAILY #0 06/28/17 Pravastatin Sodium 20 mg PO DAILY #0 06/28/17 metFORMIN SR [Glucophage XR 500 mg 1,000 mg PO BID #0 06/28/17 (*)] Bupropion HCl [Wellbutrin Xl] 300 mg PO DAILY 10/04/17 DULoxetine [Cymbalta 30 MG (*)] 60 mg PO DAILY 10/04/17 Diazepam [Valium 10 MG (*)] 10 mg PO BID 10/04/17 Levothyroxine [Synthroid 25 mcg 25 mcg PO DAILY06 10/04/17 (*)] Valacyclovir HCl [Valtrex] 1,000 mg PO DAILY 10/04/17 ZOLPIDEM TARTRATE [Ambien CR 12.5 12.5 mg PO HS 10/04/17 mg] amLODIPine BESYLATE/BENAZEPRIL 1 each PO DAILY 10/04/17 [Lotrel 5/20 mg Cap (*)] Acetaminophen [Tylenol 325mg (*)] 650 mg PO Q6HRS tab 11/11/17 Aspirin [Aspirin 325 mg (*)] 325 mg PO DAILY tab 11/11/17 Ondansetron Odt [Zofran Odt 4 mg 4 mg PO Q4HRS PRN tab 11/11/17 (*)] Sennosides/Docusate Sodium 1 - 2 tab PO BID tab 11/11/17 [Senokot-S] celeCOXIB [Celebrex (*)] 200 mg PO DAILY cap 11/11/17 oxyCODONE IR [Oxycodone Ir (*)] 5 - 10 mg PO Q3HRS PRN tab 11/11/17 traMADol [Ultram 50 mg (*)] 50 mg PO Q6HRS PRN tab 11/11/17 morphINE IR [morphINE IR 15 mg (*)] 15 mg PO Q3-4PRN PRN #10 tab 11/27/17 Medical Decision Making - Diagnostics Imaging Results: Imaging Impressions Extremity Venous Study 11/27/17 08:23 Impression: No deep venous thrombosis right leg. So's cyst. Results called to Dr. Narinder Conroy at. 9:30 AM. Imaging: Discussed imaging studies w/ call center rn Radiologist ED Course/Re-evaluation: 9:45 p.m. we discussed the ultrasound results. The patient is reassured. She is asking for refill of her pain medication. She is asking for morphine because the oxycodone was making her nauseous. We will try morphine IR and I will refer her back to her orthopedist. She is happy with this plan and declines further workup or testing. Differential Diagnosis: Partial list of the Differential diagnosis considered include but were not limited to; postoperative pain, DVT, So cyst and although unlikely based on the history and physical exam, I also considered infection, foreign body. - Data Points Medications Given: Discontinued Medications Hydromorphone HCl (Dilaudid) 1 mg IVP EDNOW ONE Stop: 11/27/17 08:24 Last Admin: 11/27/17 08:47 Dose: 1 mg Departure - Departure Disposition: Home, Routine, Self-Care Clinical Impression: Postoperative pain of right knee Condition: Fair Instructions: Precautions after Total Joint Replacement Surgery (ED) Referrals: DINAH STARR [Primary Care Provider] - As per Instructions Prescriptions: morphINE IR [morphINE IR 15 mg (*)] 15 mg PO Q3-4PRN PRN #10 tab PRN Reason: Pain, Severe
[2017-11-27 10:05] VITALS: BP 136/78
== END 2017-11-27 10:05 | disposition home or self-care (01) ==
DX: G89.18 Other acute postprocedural pain (principal); I10 Essential (primary) hypertension; M25.561 Pain in right knee; Z79.82 Long term (current) use of aspirin
CPT/HCPCS: 96374; J1170

== ENCOUNTER 2017-12-11 03:21 | Emergency (ER) | payer OTHER ==
[2017-12-11] MEDS ORDERED: fentaNYL 100 MCG/2 ML INJ IVP ONE ×2 (03:27→04:16)
--- NOTE | 2017-12-11 03:34 | EDPHY ---
H & P Stated Complaint: R knee pain after dog jumped on knee, post knee replacement Time Seen by Provider: 12/11/17 03:25 HPI/ROS: HPI The patient presents with right knee pain. She is status post total knee arthroplasty of the right knee performed about [address] Castillo. Last night, I 35 lb dog jumped up on her and landed on her knee. She has had progressive pain of her right knee as well as swelling which has been constant and getting progressively worse. She has not taken any medication for pain.. REVIEW OF SYSTEMS Constitutional: No fever, no chills. Eyes: No discharge. ENT: No sore throat. Cardiovascular: No chest pain, no palpitations. Respiratory: No cough, no shortness of breath. Gastrointestinal: No abdominal pain, no vomiting. Genitourinary: No hematuria. Musculoskeletal: No back pain. Skin: No rashes. Neurological: No headache. PMHx: Right knee total arthroplasty Soc Hx: Lives in a 3 story house PHYSICAL General Appearance: Alert, no distress Eyes: Pupils equal and round no pallor or injection ENT, Mouth: Mucous membranes moist Respiratory: There are no retractions, lungs are clear to auscultation Cardiovascular: Regular rate and rhythm Gastrointestinal: Abdomen is soft and non-tender, no masses, bowel sounds normal Neurological: A&O, moves all extremities Skin: Warm and dry, no rashes Musculoskeletal: Right knee with effusion and tender to palpation Extremities: symmetrical, full range of motion Psychiatric: Patient is oriented X 3, there is no agitation Source: Patient Exam Limitations: No limitations - Personal History Current Tetanus Diphtheria and Acellular Pertussis (TDAP): Yes - Medical/Surgical History Hx Asthma: No Hx Chronic Respiratory Disease: No Hx Diabetes: No Hx Cardiac Disease: No Hx Renal Disease: No Hx Cirrhosis: No Hx Alcoholism: No Hx HIV/AIDS: No Hx Splenectomy or Spleen Trauma: No Other PMH: 3 prior back surgeries, HTN, anxiety, depression, hypothyroidism - Social History Smoking Status: Never smoked Constitutional: Initial Vital Signs Temperature (C) 37.0 C 12/11/17 03:24 Heart Rate 79 12/11/17 03:24 Respiratory Rate 20 12/11/17 03:24 Blood Pressure 129/80 H 12/11/17 03:24 O2 Sat (%) 96 12/11/17 03:24 O2 Delivery Mode Room Air Allergies/Adverse Reactions: No Known Allergies Allergy (Verified 12/11/17 03:24) Home Medications: Medication Instructions Recorded Herbals/Supplements -Info Only 1 ea PO DAILY #0 06/28/17 Pravastatin Sodium 20 mg PO DAILY #0 06/28/17 metFORMIN SR [Glucophage XR 500 mg 1,000 mg PO BID #0 06/28/17 (*)] Bupropion HCl [Wellbutrin Xl] 300 mg PO DAILY 10/04/17 DULoxetine [Cymbalta 30 MG (*)] 60 mg PO DAILY 10/04/17 Diazepam [Valium 10 MG (*)] 10 mg PO BID 10/04/17 Levothyroxine [Synthroid 25 mcg 25 mcg PO DAILY06 10/04/17 (*)] Valacyclovir HCl [Valtrex] 1,000 mg PO DAILY 10/04/17 ZOLPIDEM TARTRATE [Ambien CR 12.5 12.5 mg PO HS 10/04/17 mg] amLODIPine BESYLATE/BENAZEPRIL 1 each PO DAILY 10/04/17 [Lotrel 5/20 mg Cap (*)] Acetaminophen [Tylenol 325mg (*)] 650 mg PO Q6HRS tab 11/11/17 Aspirin [Aspirin 325 mg (*)] 325 mg PO DAILY tab 11/11/17 Ondansetron Odt [Zofran Odt 4 mg 4 mg PO Q4HRS PRN tab 11/11/17 (*)] Sennosides/Docusate Sodium 1 - 2 tab PO BID tab 11/11/17 [Senokot-S] celeCOXIB [Celebrex (*)] 200 mg PO DAILY cap 11/11/17 oxyCODONE IR [Oxycodone Ir (*)] 5 - 10 mg PO Q3HRS PRN tab 11/11/17 traMADol [Ultram 50 mg (*)] 50 mg PO Q6HRS PRN tab 11/11/17 morphINE IR [morphINE IR 15 mg (*)] 15 mg PO Q3-4PRN PRN #10 tab 11/27/17 morphINE IR [morphINE IR 15 mg (*)] 15 mg PO Q4H PRN #10 tab 12/11/17 Medical Decision Making - Diagnostics Imaging Results: X-ray right knee three view shows postsurgical changes with hardware in place, there is a effusion present, interpreted by me, radiology interpretation is pending Differential Diagnosis: 57-year-old female, history of total knee arthroplasty 4 weeks ago presents after dog jumped on her knee, now with signs of knee effusion. There is no redness of the joint. The leg is slightly swollen though I doubt DVT given acute onset of her symptoms in the setting of dog jumping on her knee. Her pulses are normal. Plan for x-rays, pain medication. In the emergency department, x-rays were performed and confirmed knee effusion. She was given fentanyl for pain with good result. I consulted with the on- call orthopedist Dr. Flaherty. He recommends follow up with the patient's primary orthopedist Dr. Castillo on Wednesday. I have encouraged the patient to use ice, elevation for her pain. I will give her a course of morphine. She should take acetaminophen and ibuprofen before using the prescription. Differential diagnoses considered include knee effusion, hardware displacement, septic joint. - Data Points Medications Given: Discontinued Medications Fentanyl (Sublimaze) 100 mcg IVP EDNOW ONE Stop: 12/11/17 03:28 Last Admin: 12/11/17 03:48 Dose: 100 mcg Fentanyl (Sublimaze) 100 mcg IVP EDNOW ONE Stop: 12/11/17 04:17 Last Admin: 12/11/17 04:27 Dose: 100 mcg Departure - Departure Disposition: Home, Routine, Self-Care Clinical Impression: Knee effusion, right Hx of total knee arthroplasty Qualifiers: Laterality: right Qualified Code(s): Z96.651 - Presence of right artificial knee joint Condition: Good Instructions: Swollen Knee Joint (ED) Additional Instructions: I recommend you take ibuprofen 400 mg with acetaminophen 650 mg every 6 hr for pain. If the pain is more severe than this, you should take the pain pill I have prescribed for you. Please follow-up with Dr. Castillo on Wednesday. Referrals: Pradeep Castillo MD [Medical Doctor] - As per Instructions Prescriptions: morphINE IR [morphINE IR 15 mg (*)] 15 mg PO Q4H PRN #10 tab PRN Reason: Pain, Breakthrough
[2017-12-11 05:54] VITALS: BP 132/84
== END 2017-12-11 05:54 | disposition home or self-care (01) ==
LOC: EDUNIT#
DX: M25.461 Effusion, right knee (principal); I10 Essential (primary) hypertension; Z79.82 Long term (current) use of aspirin; Z96.651 Presence of right artificial knee joint; Z79.84 Long term (current) use of oral hypoglycemic drugs; W54.1XXA Struck by dog, initial encounter; Y99.8 Other external cause status
CPT/HCPCS: 96374; J3010

== ENCOUNTER → 2018-04-19 | Outpatient (CLI) | payer OTHER | LOC: FIMAGING 13:06 | PROVIDERS: ATTEND Family Medicine | DX: Z12.31 Encounter for screening mammogram for malignant neoplasm of breast (principal); Z80.3 Family history of malignant neoplasm of breast ==

== ENCOUNTER → 2018-04-27 | Outpatient (CLI) | payer OTHER | LOC: FIMAGING 14:24 | PROVIDERS: ATTEND Family Medicine | DX: R92.2 Inconclusive mammogram (principal) ==

== ENCOUNTER → 2018-05-11 | Outpatient (CLI) | payer OTHER | LOC: FIMAGING 09:31 | PROVIDERS: ATTEND Family Medicine | DX: M25.461 Effusion, right knee (principal); K44.9 Diaphragmatic hernia without obstruction or gangrene; K22.9 Disease of esophagus, unspecified; E78.5 Hyperlipidemia, unspecified; Z96.641 Presence of right artificial hip joint ==

== ENCOUNTER → 2018-09-26 | Outpatient (CLI) | payer OTHER | LOC: FIMAGING 15:31 | PROVIDERS: ATTEND Family Medicine | DX: M19.041 Primary osteoarthritis, right hand (principal); M19.042 Primary osteoarthritis, left hand ==